=== PATIENT | female | born 1955 | race Caucasian/White ===

== ENCOUNTER 2017-01-04 22:34 | Inpatient (IN) | payer BC ==
--- NOTE | ~2017-01-04 | EKG ---
PATIENT: EVIE AGEE UNIT #: [id number] Ventricular Rate: 170 BPM Atrial Rate: 170 BPM QRS Duration: 138 ms Q-T Interval: 266 ms QTC Calculation(Bezet): 447 ms Calculated R Pux[place]: 5 degrees Calculated T P[place]: 149 degrees Diagnosis Line: Atrial flutter with 2 to 1 block Diagnosis Line: Non-specific intra-ventricular conduction block Diagnosis Line: ST elevation consider inferior injury or acute Diagnosis Line: infarct Diagnosis Line: ST elevation consider anterior injury or acute Diagnosis Line: infarct Diagnosis Line: Consider right ventricular involvement in acute Diagnosis Line: inferior infarct Diagnosis Line: Abnormal ECG Diagnosis Line: When compared with ECG of 13-DEC-2013 20:52, Diagnosis Line: Atrial flutter has replaced Sinus rhythm Diagnosis Line: Vent. rate has increased BY 109 BPM Diagnosis Line: Confirmed by MARY KIMBROUGH MD ([id number]) on 01/06/2017 Diagnosis Line: 2:54:20 PM INTERPRETING MD: LUIS E BOWEN
--- NOTE | ~2017-01-04 | CR72 ---
[facility] A Service of [facility] & [facility] RADIOLOGY TEXT RESULTS PATIENT: EVIE AGEE LOCATION: [place] [id number] : 54 UNIT #: [id number] AGE: [address]: Jannie Myrick MD SEX: F ORDER DR: [id number] [facility] [place] [address] [place], [place] [address] [id number] I MR#: [id number] Acc #: [id number] NAME: EVIE AGEE. : 1955 SEX: F STUDY DATE/TIME: 01/06/2017 04:15 UNIT: [facility] ROOM: [facility] STUDY DESCRIPTION: CR Chest Single View Portable Attending Physician: Jannie Myrick M.D. Ordering Physician: Leatha Calles M.D. Primary Care Physician: Jose Perkins M.D. MEDICAL IMAGING REPORT This report is preliminary unless electronic signature is present EXAM Portable chest 01/06/2017 0415 hours INDICATION Shortness of air, tachycardia and chest pain. FINDINGS AP portable chest compared with 01/05/2017. Cardiomegaly stable status post sternotomy. Right IJ line near the right atrial level. Mild infiltrate or atelectasis is noted in both bases. There is probably a trace amount of pleural fluid on the left. No pneumothorax. Dictated by... Brendan Eduardo Jr., M.D. THIS IS AN ELECTRONICALLY VERIFIED REPORT Brendan Eduardo Jr., M.D. at 01/06/2017 8:39 PM CIPRIANO/arabella TD: 01/06/2017 11:19 JOB #: [id number] MEDICAL IMAGING REPORT COPY
--- NOTE | ~2017-01-04 | CR72 ---
[facility] A Service of [facility] & [facility] RADIOLOGY TEXT RESULTS PATIENT: EVIE AGEE LOCATION: [place] [id number] : 54 UNIT #: [id number] AGE: [address]: Jannie Myrick MD SEX: F ORDER DR: [id number] [facility] [place] [address] [place], [place] [address] [id number] I MR#: [id number] Acc #: [id number] NAME: EVIE AGEE. : 1955 SEX: F STUDY DATE/TIME: 01/05/2017 01:59 UNIT: [facility] ROOM: [facility] STUDY DESCRIPTION: CR Chest Single View Portable Attending Physician: Jannie Myrick M.D. Ordering Physician: Goldie Chen M.D. Primary Care Physician: Jose Perkins M.D. MEDICAL IMAGING REPORT This report is preliminary unless electronic signature is present EXAM Portable chest, 01/05 at 01:59. INDICATIONS Line placement. History of cardiogenic shock tonight. FINDINGS AP portable chest compared with 01/04/2017. New right IJ line is positioned at cavoatrial junction. There is no pneumothorax. Cardiomegaly is stable. Mild atelectasis noted, left base. Dictated by... Brendan Eduardo Jr., M.D. THIS IS AN ELECTRONICALLY VERIFIED REPORT Brendan Eduardo Jr., M.D. at 01/05/2017 8:44 PM CYNK/dyan TD: 01/05/2017 11:30 JOB #: [id number] MEDICAL IMAGING REPORT COPY
--- NOTE | ~2017-01-04 | DS ---
Unit #: [id number] #: [id number] Patient: EVIE AGEE [id number] [place] [id number] [facility] [place], [place] [address] [id number] I MR#: [id number] NAME: EVIE AGEE. ROOM: [facility] Age: 61 Sex: F Admission Date: 01/05/2017 : 1955 Discharge Date: Attending Physician: Jannie Myrick M.D. Primary Care Physician: Jose Perkins M.D. DISCHARGE SUMMARY DATE OF TRANSFER TO [facility] January 10, 2017 TRANSFER DIAGNOSES 1. Acute hypoxic respiratory failure, improved. 2. Non-ST elevation myocardial infarction with cardiogenic shock with a peak troponin of 19.78. 3. Coronary artery disease with history of coronary artery bypass graft status post cardiac catheterization on January 08, 2017. 4. Iron deficiency anemia. 5. Recent gastrointestinal bleeding. 6. 2D echocardiogram on January 08, 2017, shows an ejection fraction of 35 to 40%. 7. MUGA scan from January 09, 2017, shows an ejection fraction of 31%. 8. Chronic kidney disease. CONSULTS FOR THIS PATIENT 1. Dr. Nix. 2. Hematology. PROCEDURES 1. On January 08, 2017, the patient underwent a cardiac catheterization per Dr. Leon. Left main coronary artery normal. LAD is a moderate sized vessel. In mid area, 100% occluded. Left circumflex approximately 100% occluded. RCA is a dominant vessel, approximately 100% occluded distally, filled by collaterals. There is a vein graft that originates in the aorta right and attached to the first obtuse marginal. The patient had only one graft open that is SVG to OM and it has multiple stents and is 'patient' [sic]. Dr. Leon had reviewed the patient's previous angiogram in 2014 and the angiogram is identical. 2. Resting MUGA scan from January 09, 2017, shows an EF of 31%. 3. 2D echocardiogram from January 08, 2017, shows the left ventricle is normal in size. Mild concentric left ventricular hypertrophy, apical left ventricular aneurysm, severe hypokinesis anterior wall and septum with EF of 35 to 40%. DIAGNOSTIC STUDIES LABORATORY: Results for today: WBC 5.9, hemoglobin 11, hematocrit 33.2, platelets 164. Sodium 134, potassium 3.9, chloride 83, COPD 38, BUN 35, creatinine 1.4, glucose 146, magnesium 2.2. IMAGING: Her chest x-ray is stable. Unit #: [id number] #: [id number] Patient: EVIE AGEE CARDIOVASCULAR: Telemetry shows sinus rhythm with occasional PVCs. HOSPITAL COURSE The patient is a 61-year-old female who was recently [facility], for rectal bleeding. Per the discharge summary from [facility] [place], she had a profound GI bleed that was likely secondary from a diverticular source. No final reports of her scopes were available. The patient presented to the emergency department on January 05, 2017 after her family called EMS. The patient had altered mental status and seen poorly responsive to them. Apparently, she had been watching tv and was confused. According to the family, they tried to obtain a blood pressure on her but they were unable to obtain a good blood pressure. Once EMS arrived, she received some fluids and her oxygenation was 98% on four liters. Once she arrived in the ER, she did have some complaints of diarrhea but no gross bleeding. Her blood pressure was 101/46, respirations 27. Her heart rate was 89. She was found to have a BMP of 3,660 and her initial set of cardiac enzymes was troponin less than 0.04. However, a few hours later, her troponin was 1.48. The patient's peak troponin was 19.7. Her hemoglobin at that time was 9.7. The patient was admitted for further workup. For the patient's acute hypoxic respiratory failure, she has been treated with supplemental O2 and has shown improvement for the patient's NSTEMI and cardiogenic shock. Her peak troponin was 19 and she did undergo a cardiac catheterization on January 08, 2017. Her angiogram has been detailed above. The patient has been treated with dopamine drip. She did undergo a MUGA scan which did show an EF of 31%. Currently, she is not on an NEL and a beta jus. Eventually, these will likely need to be started pending her blood pressure. Again, her MUGA scan did show an EF of 31%. Dr. Flanagan is questioning whether this event was secondary to a V-fib or V-tach. She is agreeable to transfer to [facility] She will be admitted Dr. Moran. Dr. Flanagan would like Hematology to be consulted for iron deficiency anemia. DISCHARGE INSTRUCTIONS 1. The patient will be transferred to [facility] for an AICD. 2. The patient will be admitted to Dr. Moran. 3. Hematology will need to be consulted for her iron deficiency anemia. 4. Healthy Heart diet. 5. Activity as tolerated. Would recommend continuing PT and OT. 6. More recommendations to follow after patient is transferred. 7. The patient will be transferred today and she is scheduled to have her AICD placed tomorrow at 1 p.m. Dictated by... Wendy Gonzalez A.P.R.N. for Kan Flanagan M.D. YULISSA/mookie TD: 01/10/2017 11:54 JOB #: [id number] Unit #: [id number] #: [id number] Patient: EVIE AGEE DISCHARGE SUMMARY X Wendy Gonzalez APRN X DISCHARGE SUMMARY
--- NOTE | ~2017-01-04 | CR72 ---
[facility] A Service of [facility] & [facility] RADIOLOGY TEXT RESULTS PATIENT: EVIE AGEE LOCATION: [place] [id number] : 54 UNIT #: [id number] AGE: [address]: Jannie Myrick MD SEX: F ORDER DR: [id number] [facility] [address] [place], [place] [address] [id number] I MR#: [id number] #: [id number] NAME: EVIE AGEE. : 1955 SEX: F STUDY DATE/TIME: 01/04/2017 22:59 UNIT: [facility] ROOM: [facility] STUDY DESCRIPTION: CR Chest Single View Portable Attending Physician: Jannie Myrick M.D. Ordering Physician: Goldie Chen M.D. Primary Care Physician: Jose Perkins M.D. MEDICAL IMAGING REPORT This report is preliminary unless electronic signature is present EXAM Portable chest, 01/04/2017. COMPARISON 11/10/2016. CLINICAL HISTORY Chest pain for 1 day, short of air. FINDINGS Low lung volumes and moderate cardiomegaly. Slight vascular congestion, but no consolidation, effusion, or pneumothorax. Dictated by... Huber Cates M.D. THIS IS AN ELECTRONICALLY VERIFIED REPORT Huber Cates M.D. at 01/07/2017 12:27 PM TEV/pc TD: 01/05/2017 09:55 JOB #: [id number] MEDICAL IMAGING REPORT COPY
--- NOTE | ~2017-01-04 | DS ---
Unit #: [id number] #: [id number] Patient: EVIE AGEE [id number] [facility] [address] [place], [place] [address] [id number] I MR#: [id number] NAME: EVIE AGEE. ROOM: [facility] Age: 61 Sex: F Admission Date: 01/05/2017 : 1955 Discharge Date: Attending Physician: Jannie Myrick M.D. Primary Care Physician: Jose Perkins M.D. DISCHARGE SUMMARY ADDENDUM The patient will be staying the night at [facility]. The patient will be weaned off of her dopamine drip. Lovenox will be stopped and the patient will need to have clear liquids for breakfast and then be NPO. The patient will be transferred to [facility] and will go straight to the EP lab. She will need to be down there prior to 1:00 as she is scheduled for 1:00. I have discussed this with Dr. Vásquez and is agreeable. Dictated by... Wendy Gonzalez A.P.R.N. for Kan Flanagan M.D. AM/paula TD: 01/10/2017 13:08 JOB #: [id number] DISCHARGE SUMMARY X Wendy Gonzalez APRN X DISCHARGE SUMMARY
--- NOTE | ~2017-01-04 | HP ---
Unit #: [id number] #: [id number] Patient: EVIE LIMA [id number] [place] [id number] [facility]. [place], [place] [address] [id number] I MR#: [id number] NAME: EVIE LIMA. ROOM: [facility] Age: 61 Sex: F Admission Date: 01/05/2017 : 1955 Attending Physician: Jannie Myrick M.D. Primary Care Physician: Jose Perkins M.D. HISTORY AND PHYSICAL HISTORY OF PRESENT ILLNESS This is a 61-year-old white female who was brought in by EMS after the family called them to the home. The patient had altered mental status, seemed poorly responsive to them. The family currently is not here to answer any questions and the patient is a somewhat poor historian on the events. According to information, she was up in a chair, had been watching television and talking with some confusion. The patient thought she was in and out of consciousness. She appeared to be weak and pale. She wears 2 L on home oxygen. EMS got there and she seemed more alert. Also, according to the family, they tried to get a blood pressure on her. They have a cuff at home and they were unable to obtain a good blood pressure. EMS arrived. They gave her some IV fluids. Her O2 sat was 98% on four liters. She did, after she arrived to ER, she did have some bout of diarrhea. Blood pressure was 101/46, respirations 27, heart rate 89. She was 97% on 4 L, as mentioned. After evaluation, it was found in her labs that her potassium was 2.9 and her magnesium was down to 1.1. Her BUN was 15, creatinine 1.0. The patient's BNP was 3660. Initial cardiac enzymes - initial set CK MB was less than 1, troponin less than 0.04 and a couple hours later CK MB was 13.7, troponin 1.48 and the latest CK total 497 with troponin 19.78. Her percentage of MB is 9.8. Hemoglobin was 9.7 with hematocrit 30.6. WBC and platelets are normal. The patient's chest x-ray shows cardiomegaly, mild atelectasis in the left base and interstitial markings consistent with congestive heart failure. The patient was given a dose of IV Bumex. In addition, he blood pressure decreased down in the 90s. There was concern she was hypotensive, maybe from shock so she was started on a dopamine drip. Her initial lactic acid was 2.9. Her EKG initially did show some ST-T wave abnormalities in the inferior lead and in lead III and AVF. She was having frequent premature ventricular complexes. It was felt likely secondary to electrolyte imbalance. The patient denies having chest pain, pain in the neck, bilateral jaws, shoulders, arms or elbow. She denies any palpitations. The patient is not very aware of the events that precipitated her being transported to the emergency room. She said she thought she was feeling fine. It was noted that the patient just was discharged from [facility] on 12/10/2016 with rectal bleeding and discharged 12/21/2016. She was evaluated from a GI standpoint. It was just reported from the discharge summary that she had evidence of profound GI bleed, likely secondary from diverticular source. There were no final reports of her scopes. The patient's hemoglobin was 7.9 but she did require some transfusions of packed red blood cells. The patient's cardiac medications Unit #: [id number] #: [id number] Patient: EVIE LIMA were adjusted. She was told that she could not be on an aspirin or antiplatelet, anticoagulation at this time due to her GI bleed. The patient has a history of having GI bleeds in the past with reported two other times where it was fairly significant. She has seen Dr. Ramirez in the past. He will be consulted also. The patient will be admitted with acute coronary syndrome, evaluated for cardiogenic shock. PAST MEDICAL HISTORY 1. Coronary artery disease. 2. Previous CABG back in 1990 and 1994 with the latest heart catheterization reported to be back in 2013, status post PCI and stent to the proximal body of the saphenous vein graft to the obtuse marginal. Details are unavailable. 3. 2013 2D echo - LVEF of 25% to 30% with septal apical akinesis, mild tricuspid regurgitation, elevated RVSP 40 to 50 mmHg. 4. 11/2016 2D echo - it was found to have been done at [facility]. LVEF was moderately to severely systolic LV dysfunction. Abnormal LV systolic filling and no significant valvular disease. 5. History of hypertension. 6. Iron deficiency anemia - follows with a thermoforming operator. 7. Hypothyroidism. 8. Chronic kidney disease. 9. GERD. 10. Degenerative disc disease. 11. Hyperlipidemia. 12. Reformed smoker, quit in 2013. 13. Recent GI bleed and discharged from [facility] 12/21/2016, likely diverticular source. PAST SURGICAL HISTORY 1. Recent scopes at [facility] during her last hospitalization. Details are unavailable. 2. Coronary artery bypass graft in 1990 and a redo in 1994. 3. Cardiac stent back in 2013. 4. Colonoscopy and polyps removed. 5. Cataract extraction. HOME MEDICATIONS 1. Fish oil 1000 mg p.o. at bedtime. 2. Furosemide 40 mg p.o. daily. 3. Lipitor 20 mg p.o. at bedtime. 4. Carvedilol 6.25 mg p.o. twice daily. 5. Protonix 40 mg p.o. daily. 6. Vitamin D2 50,000 units p.o. weekly. 7. Folic acid 1 mg p.o. daily. 8. Vitamin B12 1 mg weekly. 9. Hydrocodone/acetaminophen one tablet p.o. daily p.r.n. ALLERGIES No known drug allergies. SOCIAL HISTORY The patient lives with her spouse. Quit smoking back in 2013. No alcohol or illicit drug use. FAMILY HISTORY Mother in her 70s after having coronary artery bypass graft. Her father in his 70s two and a half years after having a stroke. Her Unit #: [id number] #: [id number] Patient: EVIE LIMA siblings are in generally well health. REVIEW OF SYSTEMS CONSTITUTIONAL: Denies fever or chills. No recent weight gain or weight loss. HEENT: Denies headache or dizziness. No visual or hearing changes. No lymphadenopathy or thyromegaly. No difficulty swallowing. CARDIOVASCULAR: Denies chest pain, denies palpitations, denies increased lower extremity edema. PULMONARY: Denies shortness of breath, denies paroxysmal nocturnal dyspnea or orthopnea. GI: Denies nausea, vomiting. Had a bout of diarrhea after arrival to the ER. NEUROLOGICAL: Had altered mental status changes before admission. PHYSICAL EXAMINATION GENERAL: On exam, Ms. Lima is a 61-year-old white female, currently in no acute respiratory distress. She is awake, alert, answers some questions but is a poor historian. Poor memory recall at times. VITAL SIGNS: Blood pressure this morning on dopamine is 103/54 and later 132/61. Heart rate 80, respirations 16, temperature 97.6, O2 sats 99% on room air. NECK: Trachea midline. No thyromegaly or lymphadenopathy. Normal carotid upstrokes. No jugular venous distention. HEART: S1, S2. Regular rate and rhythm. No clicks, murmurs or rubs. LUNGS: Bilateral rales in bases. Some scattered rhonchi in upper airways. ABDOMEN: Obese, soft, slightly tender with palpating. EXTREMITIES: Pedal pulses are palpable with trace of pedal edema. DIAGNOSTIC STUDIES LABORATORY: ABGs - pH 7.389, pCo2 52.9, pO2 79.5, O2 sats 93.0. Glucose is 188, BUN 15, creatinine 1.0, eGFR is 59.7, sodium 139, potassium is 3.3 after replacing. Admission potassium was 2.9. Chloride 101, CO2 31, calcium 7.4, magnesium is 1.3. Prior, it was 1.1. Total protein 6.2, albumin 2.7, bili total 1.6, AST 31, ALT 13, alkaline phos. is 175. WBCs are 8.6, hemoglobin 9.9, hematocrit 30.6 and platelets 172. Initial cardiac enzymes - CK MB was less than 1.0 and later 13.7. Troponin less than 0.05 and 1.48 and the latest is 19.7 and 6. Percentage of these is 9.8. BNP is 3660. Lactic acid on admission was 2.9 and this morning 0.6. WBC 8.6, hemoglobin 9.9, hematocrit 30.6 and platelets of 172. Urinalysis - 0.2 urobilinogen, otherwise unremarkable. IMAGING: Chest x-ray shows no pneumothorax, mild atelectasis, increased interstitial markings consistent with congestive heart failure. CARDIOVASCULAR: EKG on admission with a low potassium and low magnesium shows some ST elevation in inferior leads and depression in septal leads with frequent premature ventricular complexes. EKG this morning shows sinus rhythm with incomplete right bundle branch Unit #: [id number] #: [id number] Patient: EVIE LIMA A block, poor R wave progression. Q wave noted in anteroseptal leads and inferior leads. ST elevation in inferior leads is basically resolved and the ST depression in septal leads is improved. IMPRESSION 1. Acute coronary syndrome, acute non-ST elevation myocardial infarction, severe hypokalemia and hypomagnesium. 2. History of recent gastrointestinal bleed and chronic anemia. 3. Diarrhea. 4. History of coronary artery disease, previous coronary artery bypass graft in 1990 and 1994. Had a percutaneous coronary intervention and stent to the proximal body of the saphenous vein graft to the obtuse marginal in November 2013. 5. Left ventricular ejection fraction is 25% to 30% on echo in 2013 and echo this past November 2016 showed severe left ventricular dysfunction with abnormal left ventricular diastolic filling. No significant valvular disease. 6. History of hypertension. 7. History of iron deficiency anemia and follows hematology. 8. Hypothyroidism. 9. Chronic kidney disease. 10. Gastroesophageal reflux disease. 11. Degenerative disc disease. 12. Hyperlipidemia. 13. Reformed smoker. PLAN 1. The patient has been admitted and evaluated for possible cardiogenic shock. The patient was initially started on dopamine for low blood pressure but it dropped to 90 systolically just one reading and she has been in the 90s and 110s. She is asymptomatic. There are no signs or symptoms of any active bleeding and she denies any chest pain. Supplementing her potassium and magnesium per protocol and her EKG shows significant improvement, likely her ST elevation in inferior leads were likely from the hypokalemia but her cardiac enzymes are indicating a non-ST elevation [place]. She has been started on heparin drip with no bolus. We have asked Dr. Chino Ramirez, GI, to follow with us because of having a recent GI bleed and she has been told in the past she should not be on aspirin, antiplatelet or anticoagulation because of having recurrent GI bleeds. She is not on an antiplatelet such as Integrilin and/or aspirin at this time because of her recent GI bleed. Will try to obtain a copy of the report of the scopes that were performed at [place] recently. 2. Continue to monitor cardiac enzymes and EKG. 3. Obtain a fasting lipid profile and evaluate. 4. Obtain a 2D echo since she has had an acute non-STEMI. We realize she just had one this past November but will need to repeat it again. 5. Gently diurese with IV Bumex. Strict intake and output and daily weights. 6. Dr. Calles, ICU outside upholsterer, will be also following the patient. There are orders for her to be on BiPAP p.r.n. but she is comfortable on O2 at 4 L at this point. 7. This is a difficult situation with the patient having recurrent GI bleeds, most recently within the last month. She has been off all anticoagulation. The next step is she will need heart catheterization. If that is the case, will need to be able to put her on some type of antiplatelet if she needs stents. Will monitor closely while she is on the heparin drip. Will do H and H's, Unit #: [id number] #: [id number] Patient: EVIE LIMA hemoglobins and hematocrits every four hours for the next 24 hours with parameters to stop the heparin. Also, she is going to be typed and screened for packed red blood cells. 8. Will be discussing the situation over the next day or two with the patient and the family. Further recommendations pending with Dr. Cartwright. Dictated by Shahla Logan A.P.R.N. for Karel Cartwright M.D. GLEN/paula TD: 01/06/2017 08:34 JOB #: [id number] HISTORY AND PHYSICAL X Shahla Logan APRN HISTORY AND PHYSICAL
--- NOTE | ~2017-01-04 | EKG ---
PATIENT: EVIE AGEE UNIT #: [id number] Ventricular Rate: 76 BPM Atrial Rate: 156 BPM QRS Duration: 102 ms Q-T Interval: 402 ms QTC Calculation(Bezet): 452 ms Calculated R [place]: 75 degrees Calculated T [place]: 132 degrees Diagnosis Line: Unusual P axis, possible ectopic atrial rhythm Diagnosis Line: Incomplete right bundle branch block Diagnosis Line: Inferior infarct , age undetermined Diagnosis Line: Anterolateral infarct , age undetermined Diagnosis Line: Nonspecific ST and T wave abnormality Diagnosis Line: Abnormal ECG Diagnosis Line: When compared with ECG of 04-JAN-2017 22:18, Diagnosis Line: (unconfirmed) Diagnosis Line: Atrial fibrillation has replaced Wide QRS Diagnosis Line: tachycardia Diagnosis Line: Vent. rate has decreased BY 94 BPM Diagnosis Line: Confirmed by FRANCES JUSTICE MD ([id number]) on Diagnosis Line: 01/06/2017 5:07:46 PM INTERPRETING MD: THEODORA
--- NOTE | ~2017-01-04 | CO ---
Unit #: [id number] #: [id number] Patient: EVIE LIMA [id number] [facility]. [place], [place] [address] [id number] I MR#: [id number] NAME: EVIE LIMA. ROOM: [facility] Age: 61 Sex: F Admission Date: 01/05/2017 : 1955 Attending Physician: Jannie Myrick M.D. Primary Care Physician: Jose Perkins M.D. Consultation Date: 01/05/2017 CONSULTATION REPORT REASON FOR CONSULTATION Initiation of heparin therapy, need clearance as the patient had a major upper gastrointestinal hemorrhage recently. HISTORY OF PRESENT ILLNESS Ms. Lima is a very pleasant 61-year-old white female. The patient was at home. Her daughter noticed her that she had slumped and not behaving the usual self. She was brought to the hospital and was found to be in acute myocardial infarct. The patient being started on low dose heparin infusion without bolus and incidentally she was admitted to [facility] only recently within the past couple of weeks and there had been admitted with substantial lower gastrointestinal hemorrhage attributed to diverticular bleed. The patient apparently had upper endoscopy and colonoscopy there and was told that she should not start on any blood thinner for the next several weeks. Her current presentation is new in terms of acute myocardial infarct. It is noteworthy that from the records at [facility] by Dr. Harris Villalba, the patient had elevated troponin even at that time. PAST MEDICAL HISTORY Significant for history of type 2 diabetes, hypertension, hyperlipidemia, COPD, congestive heart failure, chronic kidney disease, and history of coronary artery disease, myocardial infarct in the past. She had presented with a GI bleed in the past. She has been on long-term anticoagulants or antiplatelet agents. Her current medications were reviewed. MEDICATIONS Include fish oil, Lasix, Lipitor, carvedilol, Protonix, vitamins, folic acid, B12, and hydrocodone and acetaminophen. ALLERGIES She has no known drug allergies. PAST SURGICAL HISTORY Included coronary artery bypass graft and cataract extraction. SOCIAL HISTORY The patient is and is an ex-smoker and does not drink alcohol. FAMILY HISTORY Significant for stroke and heart attack and unknown cancer in the family. Unit #: [id number] #: [id number] Patient: EVIE LIMA A REVIEW OF SYSTEMS Detailed review of organ system does not reveal any recent weight loss. No history of fever, chills, or rigors. No history of headache, seizures, chest pain, or syncope. No history of cough, expectoration, or hemoptysis. There is history of possible syncope according to the daughter at home. No history of skin rash, aphthous ulcer in mouth, or reactive arthritis. No history of focal seizures or extremity weakness. No history of dysuria, hematuria, or pyuria. No history of overt GI bleed at this time. PHYSICAL EXAMINATION GENERAL: She is comfortable, alert, and oriented, and lying in bed. She is quite still. VITAL SIGNS: Temperature is 97.6, pulse 80 per minute and regular, respiratory rate is 16 per minute. She is in normal sinus rhythm. Blood pressure 132/61. She weighs 182 pounds. Baseline weight is about 230 pounds in the past. HEENT: She has mild pallor. There being no icterus, lymphadenopathy. Grade 1 pitting peripheral edema is seen. CARDIOVASCULAR: Normal heart sounds. No murmurs on auscultation. LUNGS: Reveal normal breath sounds. Good air entry. ABDOMEN: Soft and nontender. Liver and spleen are not palpable. Bowel sounds normal. DIAGNOSTIC STUDIES LABORATORY RESULTS: Show hemoglobin of 9.7. White count and platelet counts are normal. Serum chemistry shows normal BUN and creatinine, potassium of 2.9, and LFTs are normal. The patient's BNP is 3600 and troponin is 20. CLINICAL IMPRESSION The patient with chronic history of congestive heart failure, chronic obstructive pulmonary disease presenting with an acute myocardial infarct with a history of recent hemorrhage. It is really a very very difficult situation in terms of decision making. However, in view of the acute myocardial infarction, the patient does need anticoagulation. Suggested to start on low dose heparin as it is already ordered and monitor hemoglobin and hematocrit closely. This issue was discussed with Don, patient's nurse. Thank you for asking me to see this pleasant woman. I appreciate the consult. Dictated by.Erum Chapin/rosa elena TD: 01/05/2017 18:05 JOB #: [id number] CC: Jannie Myrick M.D. Unit #: [id number] #: [id number] Patient: EVIE LIMA CONSULTATION REPORT X Chino Ramirez MD CONSULTATION REPORT
--- NOTE | ~2017-01-04 | EKG ---
PATIENT: EVIE AGEE UNIT #: [id number] Ventricular Rate: 80 BPM Atrial Rate: 80 BPM P-R Interval: 144 ms QRS Duration: 108 ms Q-T Interval: 412 ms QTC Calculation(Bezet): 475 ms P [place]: 72 degrees Calculated R [place]: 118 degrees Calculated T [place]: 74 degrees Diagnosis Line: Sinus rhythm with PAC's Diagnosis Line: Left posterior fascicular block Diagnosis Line: Possible Inferior infarct , age undetermined Diagnosis Line: Anterior infarct (cited on or before 05-JAN-2017) Diagnosis Line: Abnormal ECG Diagnosis Line: When compared with ECG of 06-JAN-2017 07:54, Diagnosis Line: Sinus rhythm has replaced Ectopic atrial rhythm Diagnosis Line: Left posterior fascicular block is now Present Diagnosis Line: Borderline criteria for Inferior infarct are now Diagnosis Line: Present Diagnosis Line: QT has lengthened Diagnosis Line: Confirmed by FRANCES JUSTICE MD ([id number]) on Diagnosis Line: 01/07/2017 10:53:39 PM INTERPRETING MD: THEODORA
--- NOTE | ~2017-01-04 | EKG ---
[id number] NAME: EVIE AGEE MR#: [id number] EKG done on January 04 at 2254. Underlying rhythm is possibly atrial fibrillation, difficult to determine. Poor baseline. Frequent premature ventricular complexes noted. Short run of nonsustained ventricular tachycardia noted. ST-T wave changes in the anterolateral leads suspicious for ischemia. Poor baseline. PA/df
--- NOTE | ~2017-01-04 | CO ---
Unit #: [id number] #: [id number] Patient: EVIE AGEE [id number] [place], [place] [address] [id number] I MR#: [id number] NAME: EVIE AGEE. ROOM: [facility] Age: 61 Sex: F Admission Date: 01/05/2017 : 1955 Attending Physician: Jannie Myrick M.D. Primary Care Physician: Jose Perkins M.D. CONSULTATION REPORT CHIEF COMPLAINT Coronary artery disease; congestive heart failure; anemia due to chronic kidney disease; no MDS, bone marrow biopsy twice normal; recent anticoagulation bleeding of anticoagulation change with confusion, exacerbation of CHF. HISTORY OF PRESENT ILLNESS This is a 61-year-old female who has multiple medical problems. She has chronic kidney disease. She has congestive heart failure. The patient has chronic anemia, receiving Procrit but minimal response. The patient had bone marrow biopsy in April 2016. No MDS. She has mild erythroid hypoplasia. Recently the patient had significant decline in performance. Started worsening with massive edema. The patient was hospitalized at [facility] with CHF. She was anticoagulated. The patient developed life-threatening bleed and survived. She was at rehab. Now the patient comes with confusion, short of breath, dyspnea on exertion, pre-syncope. The patient had a cardiac cath. The patient has 3-vessel disease. Her ejection fraction is about 30%. She is going for AICD. Today her CBC shows WBC of 5.9, hemoglobin 11, platelets 164, MCV 91. At the time of admission her hemoglobin was 9.7. Her creatinine is 1.4, albumin 2.6. LFTs are normal. Her BNP was 3,660. She is receiving diuretics. The patient has significant improvement in her edema. REVIEW OF SYSTEMS CONSTITUTIONAL: Significant decline in performance status. Short of breath. Massive edema. EYES: No visual symptoms. EARS, NOSE AND THROAT: There is no runny nose or sore throat or difficulty hearing. CARDIOVASCULAR: No chest pain. No shortness of breath. No palpitations. No orthopnea. No PND. RESPIRATORY: No cough. No wheezing. No hemoptysis. GASTROINTESTINAL: No nausea, vomiting, diarrhea, constipation, hematochezia or melena. GENITOURINARY: No urinary frequency, hesitancy or urgency. No blood in the urine. MUSCULOSKELETAL: No muscle or joint pain. Unit #: [id number] #: [id number] Patient: EVIE AGEE NEUROLOGIC: No headache. No numbness or tingling. No weakness. No seizure. PSYCHIATRIC: No anxiety, depression or mood disturbance. ENDOCRINE: No excessive urination or thirst. DERMATOLOGIC: No rash or change in the skin. ALLERGIC/IMMUNOLOGIC: No symptoms. HEMATOLOGIC/LYMPHATIC: Denies any symptoms. PAST MEDICAL HISTORY 1. Coronary artery disease. CABG twice. Now 3-vessel disease. 2. CHF. Ejection fraction about 30%. 3. CKD. 4. Chronic anemia. 5. COPD. 6. Hypertension. 7. Hypothyroidism. 8. GERD. ALLERGIES None. SOCIAL HISTORY Smoked 1 pack per day for almost 40 years. Quit recently. SURGICAL HISTORY CABG twice. Stent. FAMILY HISTORY Mother of coronary artery disease in early 70s. CURRENT MEDICATIONS Bumex, Senokot, Maxipime, Lovenox 40 mg subcu q.24 hours, Protonix, insulin, hydrocodone. PHYSICAL EXAMINATION VITAL SIGNS: Afebrile. Pulse 95, respirations 24, O2 sat on 4 liters 98%, blood pressure 111/46. HEENT: Moist mucosa. Pupils equally reactive to light. Extraocular muscles intact. Sclerae anicteric. No obvious bleeding from nasal mucosa or oral mucosa. Scalp normal. Hearing normal. NECK: No JVD. No lymphadenopathy. LYMPHATIC/HEMATOLOGIC: There is no palpable adenopathy in the neck, axilla or inguinal area. CARDIOVASCULAR: S1, S2. Regular rate and rhythm. No S3 or S4. RESPIRATORY: Chest symmetrical, normal. Clear to auscultation bilaterally. No wheezes, no rales, no rhonchi. No dullness to percussion. ABDOMEN/GASTROINTESTINAL: Abdomen is soft, nontender, nondistended. No hepatosplenomegaly. EXTREMITIES: There is no clubbing, no cyanosis, no edema. No varicose veins. NEUROLOGICAL: Patient is alert, awake and oriented x3. Cranial nerves II-XII are intact. Sensory grossly intact. Motor is 4/5 in all four extremities. Gait is normal. Station is normal. Language is normal. Memory is normal. DTRs +2 in all four extremities. MUSCULOSKELETAL: No joint swelling. No bony tenderness. No muscle tenderness. SKIN: No petechiae, no rash, no ecchymosis. PSYCHIATRIC: No anxiety. No delusions or hallucinations. There is no Unit #: [id number] #: [id number] Patient: EVIE AGEE agitation. Eye contact is normal. Affect is appropriate. There is no flight of ideas. DIAGNOSTIC STUDIES LAB: As mentioned above. IMAGING: Chest x-ray - No mass. ASSESSMENT AND PLAN This is a 61-year-old female who has the following active issues: 1. Anemia. This is complex. She had a bone marrow biopsy twice. Both were normal. She has CKD. She has been receiving Procrit as an outpatient. Hemoglobin is above 10. Will give her intravenous iron, folic acid, B12 to stimulate the bone marrow. 2. Cardiovascular. She has significant coronary artery disease. She had CABG twice. The patient has congestive heart failure, ejection fraction is 30%. Is going for "CABG." Prognosis is poor. 3. COPD. She is taking an inhaler. Is stable. DISCUSSION I had an extensive discussion with the patient and her . Adlyfe worked for her. She has lost significant water. She is feeling a lot better. In my opinion, the medical management is going to help her. I will follow the patient as an outpatient. Dictated by... Erum Aguilar TD: 01/10/2017 15:04 JOB #: [id number] CONSULTATION REPORT X Missy Mcgrath MD X CONSULTATION REPORT
--- NOTE | ~2017-01-04 | EKG ---
PATIENT: EVIE AGEE UNIT #: [id number] Ventricular Rate: 69 BPM Atrial Rate: 69 BPM P-R Interval: 182 ms QRS Duration: 88 ms Q-T Interval: 392 ms QTC Calculation(Bezet): 420 ms P [place]: -85 degrees Calculated R [place]: 121 degrees Calculated T [place]: 113 degrees Diagnosis Line: Unusual P axis, possible ectopic atrial rhythm Diagnosis Line: Right axis deviation Diagnosis Line: Anteroseptal infarct (cited on or before Diagnosis Line: 27-OCT-2013) Diagnosis Line: Abnormal ECG Diagnosis Line: When compared with ECG of 05-JAN-2017 09:53, Diagnosis Line: (unconfirmed) Diagnosis Line: Nonspecific T wave abnormality no longer evident Diagnosis Line: in Inferior leads Diagnosis Line: Confirmed by FRANCES JUSTICE MD ([id number]) on Diagnosis Line: 01/06/2017 5:20:17 PM INTERPRETING MD: THEODORA
--- NOTE | ~2017-01-04 | CR72 ---
[facility] A Service of [facility] RADIOLOGY TEXT RESULTS PATIENT: EVIE AGEE LOCATION: [place] [id number] : [birth year] UNIT #: [id number] AGE: [address]: Jannie Myrick MD SEX: F ORDER DR: [id number] [facility] [address] [place], [place] [address] [id number] I MR#: [id number] Acc #: [id number] NAME: EVIE AGEE : 1955 SEX: F STUDY DATE/TIME: 01/09/2017 9:34 UNIT: [facility] ROOM: [facility] STUDY DESCRIPTION: CR Chest Single View Portable Attending Physician: Jannie Myrick M.D. Ordering Physician: Nikolay Nix M.D. Primary Care Physician: Jose Perkins M.D. MEDICAL IMAGING REPORT This report is preliminary unless electronic signature is present EXAM AP portable chest, 01/09/2017 HISTORY 61-year-old female recently admitted with cardiogenic shock. Shortness of air. Followup cardiopulmonary status. TECHNIQUE AP portable chest x-ray. FINDINGS Moderately severe cardiomegaly is stable. Median sternotomy. Pulmonary vascularity is within normal limits. Lung volumes are low, and there is mild bibasilar atelectasis. The lungs are otherwise clear. Right IJ central line in good position. No significant change since 01/06/2017. IMPRESSION Stable portable chest radiograph, unchanged since 01/06/2017. Dictated by... Alf Wang M.D. THIS IS AN ELECTRONICALLY VERIFIED REPORT Alf Wang M.D. at 01/09/2017 4:00 PM TALON/greg TD: 01/09/2017 12:02 JOB #: [id number] MEDICAL IMAGING REPORT COPY
--- NOTE | ~2017-01-04 | CO ---
Unit #: [id number] #: [id number] Patient: EVIE AGEE [id number] [place], [place] [address] [id number] I MR#: [id number] NAME: EVIE AGEE. ROOM: [facility] Age: Sex: F Admission Date: 01/05/2017 : 1955 Attending Physician: Jannie Myrick M.D. Primary Care Physician: Jose Perkins M.D. CONSULTATION REPORT REASON FOR CONSULTATION Critical care management and respiratory failure and cardiogenic shock. CHIEF COMPLAINT Shortness of breath. HISTORY OF PRESENT ILLNESS This patient basically is a 61-year-old female with a past medical history of hemorrhagic hypovolemic shock, acute blood loss anemia, GI bleed, chronic kidney disease, chronic systolic heart failure and pulmonary hypertension, presents with a complaint of shortness of breath and was found to be in acute cardiogenic shock. Admitted, started on dopamine. I am seeing the patient at bedside. Currently denies any headache, blurry vision. No chest pain. REVIEW OF SYSTEMS Positive pallor. No edema, no cyanosis, no jaundice. The rest of twelve point review of systems has been reviewed and is negative other than History of Present Illness. PHYSICAL EXAMINATION VITAL SIGNS: Temperature 98, pulse 87, respirations 12, blood pressure 110/70. NEUROLOGICAL: Awake, alert, oriented. No neuro deficit. HEENT: PERRLA. NECK: Supple. No JVD. CHEST: Bilateral air entry, bilateral mild rhonchi. GI: Nontender, soft. Bowel sounds positive. EXTREMITIES: No edema. SKIN: No rashes, no ulcers. LYMPHATIC: No lymphadenopathy. DIAGNOSTIC STUDIES LABORATORY: Blood gas - pH 7.38, pCO2 42, pO2 is 79. Creatinine is 1.0, sodium 139, potassium 2.9, mag is 1.3. Troponin is 19. BNP 1660. White count is 8, hemoglobin 9, platelet count is 172. IMAGING: Chest x-ray - bilateral pulmonary edema. ASSESSMENT AND PLAN 1. Acute myocardial infarction. Unit #: [id number] #: [id number] Patient: EVIE AGEE 2. Acute cardiogenic shock and bilateral pulmonary edema. 3. Critically ill patient. Plan is to continue patient on dopamine. Replace electrolytes. GI and DVT prophylaxis. Continue bronchodilator and BiPAP support. Increase diuretics. Anticoagulation as per cardiology. Follow 2D echo. We will continue to monitor. Please see orders for detailed plan. Thank you very much for your kind consideration to consult me. Total critical care time is 55 minutes in direct critical care of this patient. We will continue to monitor patient in the ICU. Dictated by... Erum Engle/paula TD: 01/05/2017 12:17 JOB #: [id number] CONSULTATION REPORT X Leatha Calles MD CONSULTATION REPORT
--- NOTE | ~2017-01-04 | MU ---
Unit #: [id number] #: [id number] Patient: EVIE AGEE [id number] [address] [place], [place] [address] [id number] I MR#: [id number] NAME: EVIE AGEE. : 1955 SEX: F STUDY DATE/TIME: UNIT: [facility] ROOM: [facility] STUDY DESCRIPTION: MUGA scan. Attending Physician: Jannie Myrick M.D. Primary Care Physician: Jose Perkins M.D. CARDIOLOGY REPORT EXAM MUGA scan. INDICATION FOR STUDY Congestive heart failure, establish ejection fraction, syncopal episode. SUMMARY The patient was given technetium pertechnetate labeled red blood cells, labeled (1) 29.7 mCi. Appropriate views were obtained in the THAI, lateral and anterior views. FINDINGS Views are appropriate. There is appropriate separation between right and left ventricles. Right ventricular size appears normal. Left ventricular size appears mildly enlarged. Ejection fraction is 31%, with primarily apical hypokinesis. IMPRESSION 1. Reduced ejection fraction. 2. Flow volume curve is excellent. 1. Dictated by... Erum Perry/yvonne TD: 01/10/2017 14:16 JOB #: [id number] CARDIOLOGY REPORT X Kan Flanagan MD CARDIOLOGY REPORT
--- NOTE | ~2017-01-04 | A ---
[facility] Nutrition Therapy DATE: 01/10/17 Patient: EVIE AGEE Physician: BERTIN Address: [address] [place] [address] Room/Bed: [address], Zip: [place] [address] Admit Date: 01/05/17 Date of : [birth year] Height: 5 4 Weight: 170 77.5 NUTRITIONAL ASSESSMENT: REASON: MD REQUESTED FOR RD TO SEE PATIENT FOR LOW SODIUM/ HEART FAILURE DIET EDUCATION Anthropometrics: HT: 64" WT: 77.5 KG BMI: 29.3 Assessment: Chart reviewed, events noted. RD received verbal request from MD to educate the pt regarding a low sodium diet. RD spoke with the pt and her at bedside. Pt seemed tired, lacking motivation to listen to diet education. Pt reports that she does occasionally use a salt shaker at home. RD discussed the importance of a low sodium diet, and discussed strategies with the pt. Pt nodded her head in understanding. RD provided the pt with printed materials for reference. Pt is transfering to today per CM report. Recommendations: 1. Pt to follow a heart healthy/ 2 gram Na+ diet as instructed by RD. Please consult RD for any further nutritional needs. Respectfully, HÉCTOR NOWAK RD, LD Food and Nutritional Services [facility] cc: client file
--- NOTE | ~2017-01-04 | DS ---
Unit #: [id number] #: [id number] Patient: EVIE AGEE [id number] [address] [address] [id number] I MR#: [id number] NAME: EVIE AGEE. ROOM: [facility] Age: 61 Sex: F Admission Date: 01/05/2017 : 1955 Discharge Date: 01/10/2017 Attending Physician: Jannie Myrick M.D. Primary Care Physician: Jose Perkins M.D. DISCHARGE SUMMARY ADDENDUM ADDITIONAL DISCHARGE DIAGNOSIS Urinary tract infection on cefepime. Culture pending. DISCHARGE/TRANSFER MEDICATIONS 1. Magnesium oxide 400 mg p.o. daily. 2. Lovenox 40 mg subcutaneous daily. 3. Zofran 4 mg IV q.4 h. p.r.n. nausea. 4. Senokot 1 tablet p.o. b.i.d. 5. MiraLAX 17 g p.o. b.i.d. 6. Bumex 2 mg IV q.4 h. 7. Lipitor 20 mg p.o. at bedtime. 8. NovoLog sliding scale insulin. 9. Midodrine 10 mg p.o. t.i.d. 10. Fish oil 1000 mg p.o. at bedtime. 11. Glycerin suppository daily p.r.n. constipation. 12. Hydrocodone/acetaminophen 5/325 mg 1 tablet p.o. q.4 h. p.r.n. pain. 13. Protonix 40 mg p.o. daily. 14. Nitroglycerin 0.4 mg sublingual q.5 minutes times 3 p.r.n. chest pain. 15. Dopamine titrate to keep MAP of 65 or greater. 16. Cefepime 1 g IV b.i.d. for urinary tract infection. Dictated by... Wendy Gonzalez A.P.R.N. for Erum Perry TD: 01/10/2017 12:26 JOB #: [id number] DISCHARGE SUMMARY X Wendy Gonzalez APRN X DISCHARGE SUMMARY
--- NOTE | ~2017-01-04 | EKG ---
PATIENT: EVIE AGEE UNIT #: [id number] Ventricular Rate: 102 BPM Atrial Rate: 102 BPM P-R Interval: 162 ms QRS Duration: 108 ms Q-T Interval: 360 ms QTC Calculation(Bezet): 469 ms P [place]: 48 degrees Calculated R [place]: 126 degrees Calculated T [place]: 40 degrees Diagnosis Line: Sinus tachycardia Diagnosis Line: Right axis deviation Diagnosis Line: Inferior infarct (cited on or before 05-JAN-2017) Diagnosis Line: Anterolateral infarct (cited on or before Diagnosis Line: 05-JAN-2017) Diagnosis Line: Abnormal ECG Diagnosis Line: When compared with ECG of 07-JAN-2017 05:49, Diagnosis Line: No significant change was found Diagnosis Line: Confirmed by MARY KIMBROUGH MD ([id number]) on 01/08/2017 Diagnosis Line: 7:18:36 AM INTERPRETING MD: LUIS E BOWEN
[~2017-01-04 22:34] MED LIST: ACETAMINOPHEN PO; ACTOS15 MG PO; AMLODIPINE-BENA1 CAP PO; ASPIRIN325 M1 PO; ASPIRIN81 M2 PO; ASPIRIN81 MG PO; CARVEDILOL6.25 MG PO; CLOPIDOGREL75 MG PO; COREG6.25 MG PO; EFFIENT10 MG PO; FERROUS GL325 ( 36 ) PO; FERROUS GL325 ( 37.5 PO; FISH OIL 1,0001 CAP PO; FISH OIL 1,0001 EAC3 PO; FISH OIL500 M1 PO; FUROSEMIDE40 MG PO; FUROSEMIDE80 MG PO; HCTZ PO; IRON TABLETS1 TAB PO; IRON325 ( 651 PO; KEFLEX500 M2 PO; LIPITOR20 MG PO; LOW DOSE ASPIRI81 M1 PO; PANTOPRAZOLE SO40 M1 PO; PANTOPRAZOLE SO40 MG PO; PERSANTINE75 MG PO; PIOGLITAZONE HC30 MG PO; PIOGLITAZONE-M1 EAC1 PO; PIOGLITAZONE15 MG PO; PIOGLITAZONE30 MG PO; PLAVIX PO; PROTONIX PO; VITAMIN D250000 UNIT PO
[2017-01-04 22:51] LABS: BASOPHIL# 0.1 X10e3 (0-0.3); BASOPHIL% 1.5 % (0-2.5); DIFF IND NO; EOSINOPHIL% 0.1 % (0.0-7.0); HEMATOCRIT 30.6 % (35.0-45.0); HEMOGLOBIN 9.7 gm/dL (12.0-16.0); LYMPHOCYTE# 0.8 X10e3 (1.0-3.5); LYMPHOCYTE% 11.3 % (17.0-45.0); MEAN CELL VOLUME 94.5 FL (83-96); MEAN CORPUSCULAR HGB CONC 31.8 g/dL (30-36); MEAN PLATELET VOLUME 9.9 FL (6.5-11.5); MONOCYTE# 1.2 X10e3 (0-1.0); MONOCYTE% 17.3 % (3.0-12.0); NEUTROPHIL% 69.8 % (40-75); PLATELET COUNT 177 X10e3 (140-420); RED BLOOD COUNT 3.24 X10e (3.90-5.30); RED CELL DISTRIBUTION WIDTH 20.4 % (11.0-15.5); WHITE BLOOD COUNT 7.1 X10e3 (4.0-10.5)
[2017-01-04 22:52] LABS: POC - CKMB <1.0 ng/mL (0.0-7.9); POC - TROPONIN <0.05 ng/mL (<=0.05)
[2017-01-04 23:03] LABS: INR 1.3; PROTHROMBIN TIME (PATIENT) 13.7 SECONDS (9.6-11.5)
[2017-01-04 23:13] LABS: ALBUMIN SERUM 2.7 g/dL (3.5-5.0); BILIRUBIN, DIRECT 0.6 mg/dL (0.0-0.2); BILIRUBIN,TOTAL 1.6 mg/dL (0.2-2.0); BUN/CREATININE RATIO 12.5; CALCIUM SERUM 7.4 mg/dL (8.4-10.2); CREATININE SERUM 1.2 mg/dL (0.6-1.4); GLOM FILT RATE Estimated 48.4 mL/min (>60); MAGNESIUM 1.1 mg/dL (1.6-3.0); POTASSIUM 2.9 mmol/L (3.5-5.1); PROTEIN TOTAL SERUM 6.2 g/dL (6.0-8.3)
[2017-01-05 00:46] LABS: POC - CKMB 13.7 ng/mL (0.0-7.9); POC - TROPONIN 1.48 ng/mL (<=0.05)
[2017-01-05] MEDS ORDERED: FOLIC ACID1 MG PO (03:35)
[2017-01-05] MEDS ORDERED: VITAMIN B12 IM (03:36)
[2017-01-05] MEDS ORDERED: HYDROCODON-ACE1 EAC7 PO (03:37)
[2017-01-05 06:40] LABS: BASOPHIL# 0.1 X10e3 (0-0.3); BASOPHIL% 0.9 % (0-2.5); DIFF IND NO; EOSINOPHIL% 0.1 % (0.0-7.0); HEMOGLOBIN 9.7 gm/dL (12.0-16.0); LYMPHOCYTE# 0.6 X10e3 (1.0-3.5); MEAN CELL VOLUME 93.8 FL (83-96); MEAN CORPUSCULAR HEMOGLOBIN 30.4 PG (28-34); MEAN CORPUSCULAR HGB CONC 32.4 g/dL (30-36); MONOCYTE# 1.4 X10e3 (0-1.0); MONOCYTE% 16.6 % (3.0-12.0); NEUTROPHIL# 6.5 X10e3 (1.5-7.1); NEUTROPHIL% 75.4 % (40-75); PLATELET COUNT 172 X10e3 (140-420); RED CELL DISTRIBUTION WIDTH 20.4 % (11.0-15.5); WHITE BLOOD COUNT 8.6 X10e3 (4.0-10.5)
[2017-01-05 07:09] LABS: URINE SOURCE CLEAN CATCH
[2017-01-05 07:14] LABS: CALCIUM SERUM 7.4 mg/dL (8.4-10.2); GLOM FILT RATE Estimated 59.7 mL/min (>60)
[2017-01-05 07:16] LABS: URINE APPEARANCE CLEAR; URINE BILIRUBIN NEG (NEG); URINE BLOOD NEG (NEG); URINE COLOR YELLOW; URINE GLUCOSE NEG (NEG); URINE KETONE NEG (NEG); URINE LEUKOCYTE ESTERASE NEG (NEG); URINE NITRATE NEG (NEG); URINE PH 5.5 (5-8); URINE PROTEIN NEG (NEG); URINE SPECIFIC GRAVITY 1.009 (1.003-1.035); URINE UROBILINOGEN 0.2 MG/DL (NEG)
[2017-01-05 07:23] LABS: CULTURE INDICATED? NO
[2017-01-05 07:25] LABS: POTASSIUM 2.9 mmol/L (3.5-5.1)
[2017-01-05 07:38] LABS: ARTERIAL BLOOD GAS CARBOXY HB 1.1 %sat (0.0-9.0); ARTERIAL BLOOD GAS HCO3 31.9 mmol/L; ARTERIAL BLOOD GAS MET HB 0.8 %sat (0.0-2.0); ARTERIAL BLOOD GAS pH 7.389 (7.350-7.450)
[2017-01-05 07:39] LABS: ARTERIAL BLOOD GAS ALLEN TEST N; ARTERIAL BLOOD GAS ART SITE LEFT RADIAL; ARTERIAL BLOOD GAS DELIVERY NASAL CANNULA; ARTERIAL BLOOD GAS PCO2 52.9 mmHg (35.0-45.0); ARTERIAL BLOOD GAS PO2 79.5 mmHg (80.0-100); ARTERIAL DRAW? YES
[2017-01-05 08:20] LABS: %MB 9.8 % (0.0-4.0); MB 48.6 ng/ml
[2017-01-05 09:47] LABS: ARTERIAL BLD GAS O2 SATURATION 76.1 % (90.0-100.0); ARTERIAL BLOOD GAS CARBOXY HB 1.2 %sat (0.0-9.0); ARTERIAL BLOOD GAS HCO3 32.9 mmol/L; ARTERIAL BLOOD GAS MET HB 0.8 %sat (0.0-2.0); ARTERIAL BLOOD GAS pH 7.391 (7.350-7.450)
[2017-01-05 09:48] LABS: ARTERIAL BLOOD GAS PCO2 54.3 mmHg (35.0-45.0); ARTERIAL BLOOD GAS PO2 45.9 mmHg (80.0-100)
[2017-01-05 09:49] LABS: ARTERIAL DRAW? NO
[2017-01-05 13:46] LABS: HEMATOCRIT 29.5 % (35.0-45.0); HEMOGLOBIN 9.6 gm/dL (12.0-16.0)
[2017-01-05 14:20] LABS: CHOLESTEROL 173 mg/dL (0-200); HDL CHOLESTEROL 57 mg/dL (35-95); LDL CHOLESTEROL 107 mg/dL (-130); LDL/HDL RATIO 2 RATIO (0-4); TRIGLYCERIDES 43 mg/dL (10-160)
[2017-01-05 16:27] LABS: HEMATOCRIT 30.6 % (35.0-45.0); HEMOGLOBIN 9.9 gm/dL (12.0-16.0)
[2017-01-05 20:17] LABS: HEMATOCRIT 32.6 % (35.0-45.0); HEMOGLOBIN 10.6 gm/dL (12.0-16.0)
[2017-01-06 02:09] LABS: HEMATOCRIT 32.4 % (35.0-45.0); HEMOGLOBIN 10.4 gm/dL (12.0-16.0)
[2017-01-06 02:38] LABS: MAGNESIUM 1.9 mg/dL (1.6-3.0); POTASSIUM 4.5 mmol/L (3.5-5.1)
[2017-01-06 03:25] LABS: %MB 5.9 % (0.0-4.0); MB 11.7 ng/ml
[2017-01-06 04:15] LABS: ARTERIAL BLD GAS O2 SATURATION 98.2 % (90.0-100.0); ARTERIAL BLOOD GAS CARBOXY HB 0.9 %sat (0.0-9.0); ARTERIAL BLOOD GAS HCO3 32.8 mmol/L
[2017-01-06 04:18] LABS: ARTERIAL BLOOD GAS ALLEN TEST NORMAL; ARTERIAL BLOOD GAS ART SITE LEFT RADIAL; ARTERIAL BLOOD GAS PCO2 54.2 mmHg (35.0-45.0); ARTERIAL DRAW? YES
[2017-01-06 04:19] LABS: ARTERIAL BLOOD GAS DELIVERY BIPAP 16/4
[2017-01-06 08:19] LABS: HEMATOCRIT 34.5 % (35.0-45.0); HEMOGLOBIN 11.1 gm/dL (12.0-16.0)
[2017-01-06 09:09] LABS: BASOPHIL# 0.1 X10e3 (0-0.3); EOSINOPHIL# 0.1 X10e3 (0-0.7); EOSINOPHIL% 1.8 % (0.0-7.0); HEMATOCRIT 34.6 % (35.0-45.0); HEMOGLOBIN 11.1 gm/dL (12.0-16.0); LYMPHOCYTE# 0.8 X10e3 (1.0-3.5); MEAN CELL VOLUME 93.9 FL (83-96); MEAN PLATELET VOLUME 10.3 FL (6.5-11.5); MONOCYTE# 1.2 X10e3 (0-1.0); MONOCYTE% 14.5 % (3.0-12.0); NEUTROPHIL# 6.3 X10e3 (1.5-7.1); NEUTROPHIL% 73.7 % (40-75); PLATELET COUNT 195 X10e3 (140-420); RED BLOOD COUNT 3.68 X10e (3.90-5.30); RED CELL DISTRIBUTION WIDTH 20.2 % (11.0-15.5); WHITE BLOOD COUNT 8.5 X10e3 (4.0-10.5)
[2017-01-06 09:10] LABS: DIFF IND NO
[2017-01-06 09:17] LABS: ALBUMIN SERUM 2.7 g/dL (3.5-5.0); BILIRUBIN,TOTAL 1.2 mg/dL (0.2-2.0); CALCIUM SERUM 8.2 mg/dL (8.4-10.2); GLOM FILT RATE Estimated 59.7 mL/min (>60); POTASSIUM 4.4 mmol/L (3.5-5.1); PROTEIN TOTAL SERUM 6.7 g/dL (6.0-8.3)
[2017-01-06 10:04] LABS: %MB 5.7 % (0.0-4.0); MB 8.3 ng/ml
[2017-01-06 20:26] LABS: HEMATOCRIT 33.2 % (35.0-45.0); HEMOGLOBIN 10.7 gm/dL (12.0-16.0)
[2017-01-07 05:57] LABS: BASOPHIL# 0.1 X10e3 (0-0.3); BASOPHIL% 0.8 % (0-2.5); EOSINOPHIL# 0.2 X10e3 (0-0.7); EOSINOPHIL% 2.3 % (0.0-7.0); HEMATOCRIT 33.7 % (35.0-45.0); HEMOGLOBIN 10.7 gm/dL (12.0-16.0); LYMPHOCYTE# 0.9 X10e3 (1.0-3.5); LYMPHOCYTE% 9.6 % (17.0-45.0); MEAN CELL VOLUME 94.1 FL (83-96); MEAN CORPUSCULAR HGB CONC 31.9 g/dL (30-36); MEAN PLATELET VOLUME 10.7 FL (6.5-11.5); MONOCYTE# 1.3 X10e3 (0-1.0); MONOCYTE% 14.9 % (3.0-12.0); NEUTROPHIL# 6.4 X10e3 (1.5-7.1); NEUTROPHIL% 72.4 % (40-75); PLATELET COUNT 168 X10e3 (140-420); RED BLOOD COUNT 3.58 X10e (3.90-5.30); RED CELL DISTRIBUTION WIDTH 19.8 % (11.0-15.5); WHITE BLOOD COUNT 8.9 X10e3 (4.0-10.5)
[2017-01-07 06:17] LABS: DIFF IND NO
[2017-01-07 06:36] LABS: CK TOTAL 51 IU/L (26-140)
[2017-01-07 06:42] LABS: ALBUMIN SERUM 2.6 g/dL (3.5-5.0); ALKALINE PHOSPHATASE 160 U/L (32-92); ALT (SGPT) 13 U/L (10-40); AST (SGOT) 30 U/L (10-42); BILIRUBIN,TOTAL 0.9 mg/dL (0.2-2.0); BLOOD UREA NITROGEN 14 mg/dL (9-23); BUN/CREATININE RATIO 15.55; CALCIUM SERUM 8.7 mg/dL (8.4-10.2); CARBON DIOXIDE 35 mmol/L (22-31); CHLORIDE 92 mmol/L (100-111); CREATININE SERUM 0.9 mg/dL (0.6-1.4); GLOM FILT RATE Estimated ABOVE60 mL/min (>60); GLUCOSE FASTING 147 mg/dL (70-110); MAGNESIUM 1.3 mg/dL (1.6-3.0); POTASSIUM 3.8 mmol/L (3.5-5.1); PROTEIN TOTAL SERUM 6.6 g/dL (6.0-8.3); SODIUM 136 mmol/L (135-145)
[2017-01-08 04:14] LABS: BASOPHIL# 0.1 X10e3 (0-0.3); BASOPHIL% 0.6 % (0-2.5); EOSINOPHIL% 0.5 % (0.0-7.0); HEMOGLOBIN 10.7 gm/dL (12.0-16.0); LYMPHOCYTE# 0.4 X10e3 (1.0-3.5); LYMPHOCYTE% 4.3 % (17.0-45.0); MEAN CELL VOLUME 93.2 FL (83-96); MEAN CORPUSCULAR HEMOGLOBIN 30.3 PG (28-34); MEAN CORPUSCULAR HGB CONC 32.5 g/dL (30-36); MEAN PLATELET VOLUME 10.3 FL (6.5-11.5); MONOCYTE# 1.4 X10e3 (0-1.0); MONOCYTE% 13.4 % (3.0-12.0); NEUTROPHIL# 8.4 X10e3 (1.5-7.1); NEUTROPHIL% 81.2 % (40-75); PLATELET COUNT 188 X10e3 (140-420); RED BLOOD COUNT 3.54 X10e (3.90-5.30); RED CELL DISTRIBUTION WIDTH 19.7 % (11.0-15.5); WHITE BLOOD COUNT 10.3 X10e3 (4.0-10.5)
[2017-01-08 04:15] LABS: DIFF IND NO
[2017-01-08 04:29] LABS: INR 1.1; PARTIAL THROMBOPLASTIN TIME 54.1 SECONDS (23.5-31.3)
[2017-01-08 04:43] LABS: BUN/CREATININE RATIO 18.18; CALCIUM SERUM 8.5 mg/dL (8.4-10.2); CREATININE SERUM 1.1 mg/dL (0.6-1.4); GLOM FILT RATE Estimated 53.5 mL/min (>60); MAGNESIUM 1.3 mg/dL (1.6-3.0); POTASSIUM 3.9 mmol/L (3.5-5.1)
[2017-01-09 05:21] LABS: BASOPHIL# 0.1 X10e3 (0-0.3); EOSINOPHIL% 0.5 % (0.0-7.0); HEMOGLOBIN 10.6 gm/dL (12.0-16.0); LYMPHOCYTE# 0.5 X10e3 (1.0-3.5); LYMPHOCYTE% 6.9 % (17.0-45.0); MEAN CELL VOLUME 92.2 FL (83-96); MEAN CORPUSCULAR HEMOGLOBIN 29.7 PG (28-34); MEAN CORPUSCULAR HGB CONC 32.2 g/dL (30-36); MEAN PLATELET VOLUME 10.3 FL (6.5-11.5); MONOCYTE# 0.8 X10e3 (0-1.0); NEUTROPHIL# 5.1 X10e3 (1.5-7.1); NEUTROPHIL% 78.6 % (40-75); PLATELET COUNT 163 X10e3 (140-420); RED BLOOD COUNT 3.57 X10e (3.90-5.30); RED CELL DISTRIBUTION WIDTH 19.7 % (11.0-15.5); WHITE BLOOD COUNT 6.5 X10e3 (4.0-10.5)
[2017-01-09 05:23] LABS: DIFF IND NO
[2017-01-09 06:12] LABS: BUN/CREATININE RATIO 20.83; CALCIUM SERUM 8.3 mg/dL (8.4-10.2); CREATININE SERUM 1.2 mg/dL (0.6-1.4); GLOM FILT RATE Estimated 48.4 mL/min (>60); MAGNESIUM 1.5 mg/dL (1.6-3.0); POTASSIUM 3.7 mmol/L (3.5-5.1)
[2017-01-09 13:35] LABS: URINE APPEARANCE CLOUDY; URINE BILIRUBIN NEG (NEG); URINE BLOOD NEG (NEG); URINE COLOR YELLOW; URINE GLUCOSE NEG (NEG); URINE KETONE NEG (NEG); URINE LEUKOCYTE ESTERASE 3+ (NEG); URINE NITRATE NEG (NEG); URINE PH 5.5 (5-8); URINE PROTEIN NEG (NEG); URINE SPECIFIC GRAVITY 1.013 (1.003-1.035); URINE UROBILINOGEN 0.2 MG/DL (NEG)
[2017-01-09 13:38] LABS: URBCS1 AUWI 0-2 /[HPF] (0-2); URINE BACTERIA AUWI 4+ (NEGATIVE); URINE SQUAMOUS EPITHELIAL CELL NONE SEEN /[HPF]; UWBCS1 AUWI 50-100 (0-5)
[2017-01-09 18:58] LABS: BUN/CREATININE RATIO 23.07; CALCIUM SERUM 8.3 mg/dL (8.4-10.2); CREATININE SERUM 1.3 mg/dL (0.6-1.4); GLOM FILT RATE Estimated 44.1 mL/min (>60); MAGNESIUM 2.9 mg/dL (1.6-3.0); POTASSIUM 3.6 mmol/L (3.5-5.1)
[2017-01-10 05:33] LABS: BASOPHIL# 0.1 X10e3 (0-0.3); BASOPHIL% 0.9 % (0-2.5); EOSINOPHIL# 0.1 X10e3 (0-0.7); EOSINOPHIL% 2.4 % (0.0-7.0); HEMATOCRIT 33.2 % (35.0-45.0); LYMPHOCYTE# 0.5 X10e3 (1.0-3.5); LYMPHOCYTE% 9.1 % (17.0-45.0); MEAN CELL VOLUME 91.5 FL (83-96); MEAN CORPUSCULAR HEMOGLOBIN 30.3 PG (28-34); MEAN CORPUSCULAR HGB CONC 33.1 g/dL (30-36); MEAN PLATELET VOLUME 10.4 FL (6.5-11.5); MONOCYTE# 0.7 X10e3 (0-1.0); NEUTROPHIL# 4.5 X10e3 (1.5-7.1); NEUTROPHIL% 75.6 % (40-75); PLATELET COUNT 164 X10e3 (140-420); RED BLOOD COUNT 3.63 X10e (3.90-5.30); WHITE BLOOD COUNT 5.9 X10e3 (4.0-10.5)
[2017-01-10 05:45] LABS: DIFF IND NO
[2017-01-10 07:15] LABS: CALCIUM SERUM 8.8 mg/dL (8.4-10.2); CREATININE SERUM 1.4 mg/dL (0.6-1.4); GLOM FILT RATE Estimated 40.5 mL/min (>60); MAGNESIUM 2.2 mg/dL (1.6-3.0); POTASSIUM 3.9 mmol/L (3.5-5.1)
[2017-01-11 05:34] LABS: BASOPHIL# 0.1 X10e3 (0-0.3); BASOPHIL% 1.3 % (0-2.5); EOSINOPHIL# 0.2 X10e3 (0-0.7); EOSINOPHIL% 3.7 % (0.0-7.0); LYMPHOCYTE# 0.7 X10e3 (1.0-3.5); LYMPHOCYTE% 13.8 % (17.0-45.0); MEAN CELL VOLUME 91.3 FL (83-96); MEAN CORPUSCULAR HEMOGLOBIN 29.4 PG (28-34); MEAN CORPUSCULAR HGB CONC 32.2 g/dL (30-36); MEAN PLATELET VOLUME 9.6 FL (6.5-11.5); MONOCYTE% 19.2 % (3.0-12.0); NEUTROPHIL# 3.3 X10e3 (1.5-7.1); PLATELET COUNT 167 X10e3 (140-420); RED BLOOD COUNT 3.39 X10e (3.90-5.30); RED CELL DISTRIBUTION WIDTH 19.6 % (11.0-15.5); WHITE BLOOD COUNT 5.4 X10e3 (4.0-10.5)
[2017-01-11 05:50] LABS: DIFF IND NO
[2017-01-11 06:58] LABS: ALBUMIN SERUM 2.2 g/dL (3.5-5.0); BILIRUBIN,TOTAL 0.9 mg/dL (0.2-2.0); BUN/CREATININE RATIO 25.88; CALCIUM SERUM 8.7 mg/dL (8.4-10.2); CREATININE SERUM 1.7 mg/dL (0.6-1.4); GLOM FILT RATE Estimated 32.4 mL/min (>60); MAGNESIUM 1.8 mg/dL (1.6-3.0); POTASSIUM 3.8 mmol/L (3.5-5.1); PROTEIN TOTAL SERUM 6.1 g/dL (6.0-8.3)
== END 2017-01-11 08:35 | disposition short-term general hospital (02) | DRG 280 ==
LOC: CED 22:34 → CEDOF 01-05 01:09 → CICCU3 01-05 03:02
PROVIDERS: Internal Medicine; Internal Medicine Cardiovascular Disease; Internal Medicine Pulmonary Disease; Internal Medicine Sleep Medicine; Student in an Organized Health Care Education/Training Program
PROC: B246YZZ Ultrasonography of Right and Left Heart using Other Contrast (ICD-10-PCS; 2017-01-05)
PROC: 4A023N7 Measurement of Cardiac Sampling and Pressure, Left Heart, Percutaneous Approach (ICD-10-PCS; principal; 2017-01-08)
PROC: B211YZZ Fluoroscopy of Multiple Coronary Arteries using Other Contrast (ICD-10-PCS; 2017-01-08)
PROC: B215YZZ Fluoroscopy of Left Heart using Other Contrast (ICD-10-PCS; 2017-01-08)
DX: I21.4 Non-ST elevation (NSTEMI) myocardial infarction (principal); R57.0 Cardiogenic shock; J96.01 Acute respiratory failure with hypoxia; I49.01 Ventricular fibrillation; I50.43 Acute on chronic combined systolic (congestive) and diastolic (congestive) heart failure; N39.0 Urinary tract infection, site not specified; B96.20 Unspecified Escherichia coli [E. coli] as the cause of diseases classified elsewhere; E11.9 Type 2 diabetes mellitus without complications; I13.0 Hypertensive heart and chronic kidney disease with heart failure and stage 1 through stage 4 chronic kidney disease, or unspecified chronic kidney disease; I47.2 Ventricular tachycardia; I25.10 Atherosclerotic heart disease of native coronary artery without angina pectoris; Z95.1 Presence of aortocoronary bypass graft; Z95.5 Presence of coronary angioplasty implant and graft; D64.9 Anemia, unspecified; E11.22 Type 2 diabetes mellitus with diabetic chronic kidney disease; N18.9 Chronic kidney disease, unspecified; J44.9 Chronic obstructive pulmonary disease, unspecified; Z98.49 Cataract extraction status, unspecified eye; Z87.891 Personal history of nicotine dependence; Z82.3 Family history of stroke; Z82.49 Family history of ischemic heart disease and other diseases of the circulatory system; K21.9 Gastro-esophageal reflux disease without esophagitis
CPT/HCPCS: 36600; 71010; 78472; 80048; 80053; 80061; 80076; 81003; 82308; 82550; 82553; 82803; 82947; 83605; 83735; 83880; 84132; 84443; 84484; 85014; 85018; 85025; 85610; 85730; 86850; 86900; 86901; 86902; 86922; 87040; 87086; 87088; 87186; 93005; 93306; 94660; 94760; 96360; 99291; 99292; A9560; C1769; C1887; C8924; J0282; J0692; J1265; J1644; J1650; J1815; J1940; J2250; J2916; J3010; J3420; J3475; Q9957

== ENCOUNTER → 2017-06-07 | Outpatient (CLI) | payer BC ==
[~2017-06-07] MED LIST changes: +FOLIC ACID1 MG PO; +HYDROCODON-ACE1 EAC7 PO; +VITAMIN B12 IM
--- NOTE | ~2017-06-07 | XA166 ---
[facility] A Service of [facility] RADIOLOGY TEXT RESULTS PATIENT: EVIE AGEE [facility] UN[facility] #: [id number] AGE: [address]: JOSE CELAYA MD SEX: F ORDER DR: [id number] [facility]. [place], [place] [address] [id number] O MR#: [id number] Acc #: [id number] NAME: EVIE AGEE : 1955 SEX: F STUDY DATE/TIME: 06/07/2017 12:35 UNIT: [facility] ROOM: STUDY DESCRIPTION: XA PICC Line Placement WO Port Attending Physician: Jose Celaya M.D. Ordering Physician: Jose Celaya M.D. Primary Care Physician: Jose Celaya M.D. MEDICAL IMAGING REPORT This report is preliminary unless electronic signature is present EXAM XA PICC line placement without port. INDICATIONS 62-year-old female who needs IV access. FLUOROSCOPY TIME 0.1 minutes, one fluoroscopic image was taken. PRE-PROCEDURE The procedure was explained to the patient and/or patient personnel representative including risks, benefits, potential complications and potential for alternative forms of treatment. Informed consent was obtained, and prior to initiating the procedure a formal timeout procedure was performed. PROCEDURE Using full standard sterile barrier technique, including caps, gowns, gloves, masks, as well as sterile skin preparation and standard sterile draping, the right arm (basilic vein) was prepped and draped in the usual fashion, and real-time sterile ultrasound guidance was used to localize an arm vein and to confirm vessel patency. A hard copy ultrasound image was recorded. After local anesthesia with 1% Xylocaine, the vein was punctured using real-time sterile ultrasound guidance, and an 0.018 guidewire was advanced into the superior vena cava, using fluoroscopic guidance. A 4-Namibian single-lumen (35 cm) PICC was then measured and deployed with the tip positioned in the superior vena cava. The position of the line was documented with a radiographic image. The line was secured in place with an adhesive dressing and an antibiotic patch was applied. Total fluoro time was 0.1 minutes. IMPRESSION [facility]. [facility] A Service of [facility] RADIOLOGY TEXT RESULTS PATIENT: EVIE AGEE [facility] [id number] : [birth year] UNIT #: [id number] AGE: [address]: JOSE CELAYA MD SEX: F ORDER DR: Successful placement of a 4-Namibian single-lumen (35 cm) PowerPICC via the right arm (basilic vein) under ultrasound and fluoroscopic guidance. The tip of the PICC is in good position in the superior vena cava. A single fluoroscopic spot image was obtained. Dictated by... Chiki Orellana M.D. THIS IS AN ELECTRONICALLY VERIFIED REPORT Chiki Orellana M.D. at 06/10/2017 7:26 AM NAYAN/esthela TD: 06/07/2017 22:32 JOB #: [id number] MEDICAL IMAGING REPORT Page 1 of 1 COPY
== END | disposition home or self-care (01) ==
LOC: CIVR 11:52
PROC: 02HV33Z Insertion of Infusion Device into Superior Vena Cava, Percutaneous Approach (ICD-10-PCS; principal; 2017-06-07)
DX: L02.31 Cutaneous abscess of buttock (principal); T81.4XXA Infection following a procedure, initial encounter
CPT/HCPCS: 76937; 77001; C1751; J1642